=== PATIENT | male | born 1965 | race Caucasian/White ===

== ENCOUNTER 2022-03-20 07:26 | Day surgery (SDC) | payer MEDICAID ==
[~2022-03-20] VITALS: Ht 172.7 cm; Wt 83.9 kg
[2022-03-20] MEDS ORDERED: MEPERIDINE 100 MG INJ. 100 MG/ML VIAL ONE (08:48)
[2022-03-20] MEDS ORDERED: SIMETHICONE 40 MG/0.6 ML ML ONE (08:48)
[2022-03-20] MEDS ORDERED: MIDAZOLAM HCL 5 MG/5 ML VIAL ONE (08:49)
[2022-03-20 09:15] VITALS: BP_SYST 119
== END 2022-03-20 09:45 | disposition home or self-care (01) ==
LOC: SDS 07:26 → SMU 07:27 → SDS 09:45
PROVIDERS: ATTEND Internal Medicine Gastroenterology
DX: K21.9 Gastro-esophageal reflux disease without esophagitis (principal); K31.7 Polyp of stomach and duodenum; K29.50 Unspecified chronic gastritis without bleeding; Z79.899 Other long term (current) drug therapy; Z20.822 Contact with and (suspected) exposure to COVID-19
CPT/HCPCS: 36415 ×2; 43251; 87081; 43239; 88305; 88312; 88313; 99152; U0003; G0378; J2250; J2175